=== PATIENT | female | born 1955 | race Caucasian/White ===

== ENCOUNTER → 2016-08-09 | Outpatient (CLI) | payer SELFPAY ==
[~2016-08-09] MED LIST: BENA10TA48 PO; ESTR0.6256 PO; GLIP5TAB13 PO; METF850T PO; RAMI10CA35 PO; SYN1 PO
[2016-08-09 17:15] LABS: ALBUMIN 3.9 g/dl (3.3-4.9)
[2016-08-09 17:16] LABS: POTASSIUM 4.9 mmol/L (3.5-5.1)
[2016-08-09 17:18] LABS: ALBUMIN/GLOBULIN RATIO 1.62; BILIRUBIN,INDIRECT 0.6 mg/dl (0-1.1); BILIRUBIN,TOTAL 0.6 mg/dl (0.2-1.3); CREATININE 1.25 mg/dl (0.44-1.00); TOTAL PROTEIN 6.3 g/dl (6.1-8.1)
[2016-08-09 17:19] LABS: CALCIUM 8.7 mg/dl (8.4-10.2)
[2016-08-09 17:30] LABS: HEMOGLOBIN 15.3 g/dl (12.0-16.0); RED BLOOD COUNT 5.56 10^6/ul (4.20-5.40); UNCORRECTED WBC 15.9 10^3/ul (4.8-10.8); WHITE BLOOD COUNT 15.9 10^3/ul (4.8-10.8)
[2016-08-09 17:31] LABS: BASOPHIL # 0.1 10^3/ul (0.0-0.1); BASOPHILS % 0.6 % (0.0-2.0); EOSINOPHILS # 0.1 10^3/ul (0.0-0.5); EOSINOPHILS % 0.7 % (0.0-7.0); LYMPHOCYTES # 1.4 10^3/ul (0.8-2.9); LYMPHOCYTES % 8.7 % (15.0-51.0); MEAN CORPUSCULAR HEMOGLOBIN 27.4 pg (29.0-33.0); MEAN CORPUSCULAR HGB CONC 31.1 g/dl (32.0-37.0); MEAN CORPUSCULAR VOLUME 88.1 fl (82.0-101.0); MEAN PLATELET VOLUME 11.8 fl (7.4-10.4); MONOCYTE # 1.3 10^3/ul (0.3-0.9); MONOCYTES % 8.2 % (0.0-11.0); NEUTROPHILS % 81.8 % (39.0-77.0); PLATELET COUNT 216 10^3/UL (140-440); RED CELL DISTRIBUTION WIDTH 16.4 % (11.5-14.5)
[2016-08-09 17:50] LABS: THYROID STIMULATING HORMONE 3.09 MIU/L (0.465-4.680)
== END | disposition home or self-care (01) ==
LOC: LAB 16:10
PROVIDERS: ATTEND Internal Medicine
DX: E03.9 Hypothyroidism, unspecified (principal); E78.5 Hyperlipidemia, unspecified; E11.9 Type 2 diabetes mellitus without complications
CPT/HCPCS: 80053; 80061; 83036; 84436; 84443; 85025